=== PATIENT | male | born 1990 | race Caucasian/White ===

== ENCOUNTER 2020-11-05 12:22 | Emergency (ER) | payer BC ==
[2020-11-05] MEDS ORDERED: KETOROLAC 30 MG/ML INJ ONE (13:50)
--- NOTE | 2020-11-05 14:14 | RAD REPORT ---
EXAM DESCRIPTION: RAD - Chest Pa And Lat (2 Views) - 11/05/2020 2:04 pm CLINICAL HISTORY: RIB PAIN - RIGHT Chest pain. COMPARISON: CHEST PA AND LAT 2 VIEW dated 10/16/2008; CHEST PA AND LAT 2 VIEW dated 07/15/2008 FINDINGS: The lungs are clear. The heart is normal in size. Healing right posterior rib fractures in volving ribs number 7 and 8 noted with callus formation present.
--- NOTE | 2020-11-05 14:25 | EDPHYS ---
Physician Documentation [facility] Name: Mehdi Guzman Age: 30 yrs Sex: Male : 1990 Arrival Date: 11/05/2020 Time: 12:25 Bed 24 Private MD: VERO Physician Ed Walton HPI: 11/05 14:01 This 30 yrs old Male presents to ER via Ambulatory with complaints of Back kb Pain. 14:01 The patient presents with pain that is acute, and tenderness. The symptoms are located kb in the right subscapular area. Onset: The symptoms/episode began/occurred 2 month(s) ago. The pain radiates to the right breast. Associated signs and symptoms: The patient has no apparent associated signs or symptoms. The problem was sustained bent over and coughed two months ago and felt a pop, has had pain since then. Modifying factors: The patient symptoms are alleviated by nothing, the patient symptoms are aggravated by coughing. Severity of symptoms: At their worst the symptoms were moderate, in the emergency department the symptoms are unchanged. The patient has not experienced similar symptoms in the past. The patient has been recently seen by a physician:. Pt reports he started having right mid back pain after bending over a coughing 2 months ago. States he felt a pop at the time. Was seen at [place] at time of onset and again 2 weeks ago. Has had CXR and CT with no findings. Has been put on muscle relaxers and pain medication, but is out. Came today because pain has continued. . Historical: - Allergies: 13:08 No Known Allergies; ca1 - Home Meds: 13:08 None [Active]; ca1 - PMHx: 13:08 None; ca1 - PSHx: 13:08 None; ca1 - Immunization history:: Flu vaccine is up to date. - Social history:: Smoking status: Patient reports the use of cigarette tobacco products, smokes two packs cigarettes per day. ROS: 14:01 Constitutional: Negative for fever, chills, and weight loss, Cardiovascular: Negative kb for chest pain, palpitations, and edema, Respiratory: Negative for shortness of breath, cough, wheezing, and pleuritic chest pain, Abdomen/GI: Negative for abdominal pain, nausea, vomiting, diarrhea, and constipation, MS/Extremity: Negative for injury and deformity, Skin: Negative for injury, rash, and discoloration, Neuro: Negative for headache, weakness, numbness, tingling, and seizure. 14:01 Back: Positive for pain at rest, pain with movement, radiated pain, of the right subscapular area. Exam: 14:04 Constitutional: This is a well developed, well nourished patient who is awake, alert, kb and in no acute distress. Head/Face: Normocephalic, atraumatic. Cardiovascular: Regular rate and rhythm with a normal S1 and S2. No gallops, murmurs, or rubs. No pulse deficits. Respiratory: Lungs have equal breath sounds bilaterally, clear to auscultation. No rales, rhonchi or wheezes noted. No increased work of breathing, no retractions or nasal flaring. Skin: Warm, dry with normal turgor. Normal color with no rashes, no lesions, and no evidence of cellulitis. MS/ Extremity: Pulses equal, no cyanosis. Neurovascular intact. Full, normal range of motion. Neuro: Awake and alert, GCS 15, oriented to person, place, time, and situation. Cranial nerves II-XII grossly intact. Moves all extremities. Sensory grossly intact. Cerebellar exam normal. Normal gait. 14:04 Back: pain, that is moderate, of the right subscapular area, ROM is normal, normal spinal alignment noted. Vital Signs: 13:05 BP 117 / 82; Pulse 86; Resp 16 S; Temp 97.9(TE); Pulse Ox 100% on R/A; Weight 102.06 kg ca1 (R); Height 5 ft. 11 in. (180.34 cm) (R); Pain 8/10; 13:05 Body Mass Index 31.38 (102.06 kg, 180.34 cm) ca1 MDM: 13:09 Patient medically screened. kb 14:04 Data reviewed: vital signs, nurses notes. Data interpreted: Pulse oximetry: on room air kb is 100 %. Interpretation: normal. Counseling: I had a detailed discussion with the patient and/or guardian regarding: the historical points, exam findings, and any diagnostic results supporting the discharge/admit diagnosis, radiology results, the need for outpatient follow up, a family practitioner, to return to the emergency department if symptoms worsen or persist or if there are any questions or concerns that arise at home. 11/05 13:09 Order name: Chest Pa And Lat (2 Views) XRAY; Complete Time: 14:16 kb Administered Medications: 13:35 Drug: TORadol 60 mg Route: IM; Site: right deltoid; iw Disposition: 11/05/20 14:24 Discharged to Home. Impression: Multiple fractures of ribs, right side. - Condition is Stable. - Discharge Instructions: Rib Fracture, [id number]. - Prescriptions for Ibuprofen 800 mg Oral Tablet - take 1 tablet by ORAL route every 8 hours As needed take with food; 30 tablet. Tylenol- Codeine #3 300-30 mg Oral Tablet - take 2 tablets by ORAL route every 6 hours As needed; 14 tablet. Cyclobenzaprine 10 mg Oral Tablet - take 1 tablet by ORAL route every 8 hours As needed; 21 tablet. - Medication Reconciliation Form, Thank You Letter, Antibiotic Education, Prescription Opioid Use form. - Follow up: Emergency Department; When: As needed; Reason: Worsening of condition. Follow up: Private Physician; When: 2 - 3 days; Reason: Recheck today's complaints, Continuance of care, Re-evaluation by your physician. Addendum: 11/06/2020 19:46 Co-signature as Attending Physician, Ed Walton MD I agree with the assessment and c harper plan of care. Signatures: Dispatcher [employer] Mayte De Los Santos, ENVIRONMENTAL PROJECTS ADVISOR-C ENVIRONMENTAL PROJECTS ADVISOR-Ed Guthrie MD MD cha Williams, Irene, RN RN Sofia Alves RN RN ca1 Corrections: (The following items were deleted from the chart) 11/05 15:08 14:24 11/05/2020 14:24 Discharged to Home. Impression: Multiple fractures of ribs, iw right side. Condition is Stable. Forms are Medication Reconciliation Form, Thank You Letter, Antibiotic Education, Prescription Opioid Use. Follow up: Emergency Department; When: As needed; Reason: Worsening of condition. Follow up: Private Physician; When: 2 - 3 days; Reason: Recheck today's complaints, Continuance of care, Re-evaluation by your physician. kb
--- NOTE | 2020-11-05 14:25 | ER ---
Nurse's Notes [facility] Name: Mehdi Guzman Age: 30 yrs Sex: Male : 1990 Arrival Date: 11/05/2020 Time: 12:25 Bed 24 Private MD: Diagnosis: Multiple fractures of ribs, right side Presentation: 11/05 13:05 Chief complaint: Patient states: Couple weeks ago, I was coughing. Bend over then the I ca1 feel something popped on the R side of my back, now it has started to hurt on my R ribcage. Coronavirus screen: Client denies travel out of the [place] in the last 14 days. cough unrelated to allergies, Client presents with at least one sign or symptom that may indicate coronavirus-19. Standard/surgical mask placed on the client. Provider contacted for isolation considerations. Ebola Screen: Patient negative for fever greater than or equal to 101.5 degrees Fahrenheit, and additional compatible Ebola Virus Disease symptoms Patient denies exposure to infectious person. Patient denies travel to an Ebola-affected area in the 21 days before illness onset. No symptoms or risks identified at this time. Initial Sepsis Screen: Does the patient meet any 2 criteria? No. Patient's initial sepsis screen is negative. Does the patient have a suspected source of infection? No. Patient's initial sepsis screen is negative. Risk Assessment: Do you want to hurt yourself or someone else? Patient reports no desire to harm self or others. Onset of symptoms was November 05, 2020. 13:05 Method Of Arrival: Ambulatory ca1 13:05 Acuity: AUGUST 4 ca1 Triage Assessment: 14:00 General: Appears in no apparent distress. Behavior is calm, cooperative. iw Musculoskeletal: Range of motion: intact in all extremities. Historical: - Allergies: 13:08 No Known Allergies; ca1 - Home Meds: 13:08 None [Active]; ca1 - PMHx: 13:08 None; ca1 - PSHx: 13:08 None; ca1 - Immunization history:: Flu vaccine is up to date. - Social history:: Smoking status: Patient reports the use of cigarette tobacco products, smokes two packs cigarettes per day. Screenin:07 Abuse screen: Denies threats or abuse. Denies injuries from another. Nutritional iw screening: No deficits noted. Tuberculosis screening: No symptoms or risk factors identified. Fall Risk None identified. Assessment: 14:00 General: Appears in no apparent distress. Behavior is calm, cooperative. Pain: iw Complains of pain in right lateral anterior chest and right lateral posterior chest and right subscapular area. Neuro: Level of Consciousness is awake, alert, obeys commands, Oriented to person, place, time, situation, Moves all extremities. Full function. Cardiovascular: Patient's skin is warm and dry. Respiratory: Respiratory effort is even, unlabored, Respiratory pattern is regular, symmetrical. Derm: Skin is intact, is healthy with good turgor. Musculoskeletal: Range of motion: intact in all extremities. Vital Signs: 13:05 BP 117 / 82; Pulse 86; Resp 16 S; Temp 97.9(TE); Pulse Ox 100% on R/A; Weight 102.06 kg ca1 (R); Height 5 ft. 11 in. (180.34 cm) (R); Pain 8/10; 13:05 Body Mass Index 31.38 (102.06 kg, 180.34 cm) ca1 ED Course: 12:25 Patient arrived in ED. bg2 13:07 Triage completed. ca1 13:08 Mayte Gonzalez FNP-C is PHCP. kb 13:08 Ed Walton MD is Attending Physician. kb 13:08 Arm band placed on right wrist. ca1 13:21 Yasmin Garner, RN is Primary Nurse. iw 14:00 Patient has correct armband on for positive identification. iw 14:01 Chest Pa And Lat (2 Views) XRAY In Process Unspecified. EDMS 15:07 No provider procedures requiring assistance completed. Patient did not have IV access iw during this emergency room visit. Administered Medications: 13:35 Drug: TORadol 60 mg Route: IM; Site: right deltoid; iw Outcome: 14:24 Discharge ordered by MD. kb 15:07 Discharged to home ambulatory. iw 15:07 Condition: good 15:07 Discharge instructions given to patient, Instructed on discharge instructions, follow up and referral plans. medication usage, Demonstrated understanding of instructions, follow-up care, medications, Prescriptions given X 1. 15:08 Patient left the ED. iw Signatures: Dispatcher [employer] EDMS Mayte Gonzalez FNP-C FNP-Yasmin Mccray RN RN Isabela Marques bg2 Sofia Alves RN RN ca1 Corrections: (The following items were deleted from the chart) 13: 13:05 Chief complaint: Patient states: Couple weeks ago, I was coughing. Bend over then ca1 the I feel something popped on the R side of my back, now it has started to hurt on my R ribcage. ca1 : 13:05 Coronavirus screen: Client denies travel out of the [place] in the last 14 days. At ca1 this time, the client does not indicate any symptoms associated with coronavirus-19. ca1 13: 13:05 BP 117 / 82; Pulse 86bpm; Resp 16bpm; Spontaneous; Pulse Ox 100% RA; Temp 97.9F ca1 Temporal; 102.06 kg Reported; Height 5 ft. 11 in. Reported; BMI: 31.3; ca1 13:15 13:05 Acuity: AUGUST 3 ca1 ca1
[2020-11-05 17:09] VITALS: BP 117/82; TEMP 97.9; O2SAT 100
== END 2020-11-05 15:08 | disposition home or self-care (01) ==
LOC: ER 12:22
DX: S22.41XA Multiple fractures of ribs, right side, initial encounter for closed fracture (principal); F17.210 Nicotine dependence, cigarettes, uncomplicated
CPT/HCPCS: 71046; 96372; 99283

== ENCOUNTER 2021-05-30 09:47 | Emergency (ER) | payer BC ==
[2021-05-30 10:43] LABS: Absolute Lymphocytes (CBC) 2.2 K/uL (0.7-4.9); Basophils % 0.9 % (0-1.3); Hematocrit 44.4 % (39.6-49.0); Lymphocytes % 24.9 % (15.3-44.8); MPV 8.2 fL (7.6-11.3); RBC Red Blood Cell Count 4.93 M/uL (4.33-5.43)
[2021-05-30 10:45] LABS: Protime INR 0.99
[2021-05-30] MEDS ORDERED: NA CHLORIDE 0.9% 1,000 ML ONE (10:48)
--- NOTE | 2021-05-30 10:59 | RAD REPORT ---
EXAM DESCRIPTION: RAD - Chest Single View - 05/30/2021 10:52 am CLINICAL HISTORY: SOB COMPARISON: Chest Pa And Lat (2 Views) dated 11/05/2020; CHEST PA AND LAT 2 VIEW dated 10/16/2008; CHES T PA AND LAT 2 VIEW dated 07/15/2008 FINDINGS: Lines: None. Lungs: Decreased lung volumes. No definite acute process identified. Pleural: No significant pleural effusions or pneumothorax. Cardiac: The heart size is within normal limits. Bones: Remote right-sided rib fractures. Other: IMPRESSION: New airspace opacities at the right lung base
[2021-05-30 11:07] LABS: ALT/SGPT 58 U/L (12-78); AST/SGOT 26 U/L (15-37); Albumin 3.7 g/dL (3.4-5.0); Alkaline Phosphatase 104 U/L (45-117); BUN Blood Urea Nitrogen 14 mg/dL (7-18); Bicarbonate 24 mmol/L (21-32); Bilirubin Direct 0.1 mg/dL (0-0.2); Bilirubin Total 0.6 mg/dL (0.2-1.0); Glucose Level 117 mg/dL (74-106); Magnesium 1.9 mg/dL (1.8-2.4); Potassium 3.9 mmol/L (3.5-5.1); Protein, Total 7.1 g/dL (6.4-8.2); Sodium Level 140 mmol/L (136-145); Troponin (Emerg Dept Use Only) < 0.02 ng/mL (0.0-0.045)
[2021-05-30 11:29] LABS: NT PRO-BNP < 5 pg/mL (<125)
--- NOTE | 2021-05-30 13:08 | EDPHYS ---
Physician Documentation [facility] Name: Mehdi Guzman Age: 31 yrs Sex: Male : 1990 Arrival Date: 05/30/2021 Time: 09:50 Bed 25 Private MD: Pierre Killian T ED Physician Jesus Harrison HPI: 05/30 10:19 This 31 yrs old Male presents to ER via Ambulatory with complaints of kdr Shortness Of Breath. 10:19 The patient has shortness of breath at rest, with light activity. Onset: The kdr symptoms/episode began/occurred gradually, 2 day(s) ago. Duration: The symptoms are continuous, and are steadily getting worse. Associated signs and symptoms: Pertinent positives: This patient does not have any pertinent positive signs or symptoms associated with shortness of breath. Pertinent negatives: chest pain, non-productive cough, productive cough, diaphoresis, dizziness, fever, hemoptysis, loss of consciousness, nausea, numbness in extremities, visual changes, vomiting. Severity of symptoms: At their worst the symptoms were mild moderate just prior to arrival, in the emergency department the symptoms are unchanged. The patient has not experienced similar symptoms in the past. The patient has not recently seen a physician. Historical: - Allergies: 09:58 PENICILLINS; tw2 09:58 Sulfa (Sulfonamide Antibiotics); tw2 - Home Meds: 09:58 Klonopin Oral [Active]; tw2 - PMHx: 09:58 Bipolar disorder; add; Major depressive disorder; Anxiety; tw2 - Immunization history:: Client reports having NOT received the Covid vaccine. - Social history:: Smoking status: Reported history of juuling and/or vaping. - Family history:: not pertinent. - Code Status:: Full code. ROS: 10:19 Constitutional: Negative for fever, chills, and weight loss, Eyes: Negative for injury, kdr pain, redness, and discharge, ENT: Negative for injury, pain, and discharge, Neck: Negative for injury, pain, and swelling, Cardiovascular: Negative for chest pain, palpitations, and edema, Abdomen/GI: Negative for abdominal pain, nausea, vomiting, diarrhea, and constipation, Back: Negative for injury and pain, : Negative for injury, bleeding, discharge, and swelling, MS/Extremity: Negative for injury and deformity, Skin: Negative for injury, rash, and discoloration, Neuro: Negative for headache, weakness, numbness, tingling, and seizure activity. Psych: Negative for depression, anxiety, suicide ideation, homicidal ideation, and hallucinations, Allergy/Immunology: Negative for hives, rash, and allergies, Endocrine: Negative for neck swelling, polydipsia, polyuria, polyphagia, and marked weight changes, Hematologic/Lymphatic: Negative for swollen nodes, abnormal bleeding, and unusual bruising. Exam: 10:19 Constitutional: This is a well developed, well nourished patient who is awake, alert, kdr and in no acute distress. Head/Face: Normocephalic, atraumatic. Eyes: Pupils equal round and reactive to light, extra-ocular motions intact. Lids and lashes normal. Conjunctiva and sclera are non-icteric and not injected. Cornea within normal limits. Periorbital areas with no swelling, redness, or edema. Neck: Trachea midline, no thyromegaly or masses palpated, and no cervical lymphadenopathy. Supple, full range of motion without nuchal rigidity, or vertebral point tenderness. No Meningismus. Chest/axilla: Normal chest wall appearance and motion. Nontender with no deformity. No lesions are appreciated. Respiratory: Lungs have equal breath sounds bilaterally, clear to auscultation and percussion. No rales, rhonchi or wheezes noted. No increased work of breathing, no retractions or nasal flaring. Abdomen/GI: Soft, non-tender, with normal bowel sounds. No distension or tympany. No guarding or rebound. No evidence of tenderness throughout. Back: No spinal tenderness. No costovertebral tenderness. Full range of motion. Skin: Warm, dry with normal turgor. Normal color with no rashes, no lesions, and no evidence of cellulitis. MS/ Extremity: Pulses equal, no cyanosis. Neurovascular intact. Full, normal range of motion. Neuro: Awake and alert, GCS 15, oriented to person, place, time, and situation. Cranial nerves II-XII grossly intact. Motor strength 5/5 in all extremities. Sensory grossly intact. Cerebellar exam normal. Normal gait. Psych: Awake, alert, with orientation to person, place and time. Behavior, mood, and affect are within normal limits. 10:19 Cardiovascular: Rate: tachycardic, Rhythm: regular, Pulses: no pulse deficits are appreciated. Vital Signs: 09:56 BP 136 / 89; Pulse 106; Resp 17; Temp 96.6(TE); Pulse Ox 97% on R/A; Weight 118.39 kg tw2 (R); Height 5 ft. 11 in. (180.34 cm); 10:10 BP 137 / 85; Pulse 108; Resp 18; Temp 98.1(TE); Pulse Ox 97% on R/A; kh1 13:17 BP 107 / 86; Pulse 97; Resp 17; Pulse Ox 97% on R/A; oh 09:56 Body Mass Index 36.40 (118.39 kg, 180.34 cm) tw2 MDM: 10:19 Data reviewed: vital signs, lab test result(s), EKG, radiologic studies. Counseling: I kdr had a detailed discussion with the patient and/or guardian regarding: the historical points, exam findings, and any diagnostic results supporting the discharge/admit diagnosis, lab results, radiology results. 13:08 Patient medically screened. [facility] 13:08 ED course: Patient was stable in the emergency department. He had no symptoms while in [facility] the ED. The patient and his were present as I discussed all results. They were happy with the care provided and the plan for discharge and follow-up.. 05/30 10:16 Order name: Basic Metabolic Panel [facility] 05/30 10:16 Order name: CBC with Diff; Complete Time: 12:51 [facility] 05/30 10:16 Order name: LFT's; Complete Time: 12:51 [facility] 05/30 10:16 Order name: Magnesium; Complete Time: 12:51 [facility] 05/30 10:16 Order name: NT PRO-BNP; Complete Time: 12:51 [facility] 05/30 10:16 Order name: PT-INR; Complete Time: 12:51 [facility] 05/30 10:16 Order name: Troponin (emerg Dept Use Only); Complete Time: 12:51 [facility] 05/30 10:16 Order name: XRAY Chest (1 view); Complete Time: 12:51 [facility] 05/30 10:16 Order name: EKG; Complete Time: 10:17 [facility] 05/30 10:16 Order name: D-Dimer; Complete Time: 12:51 [facility] 05/30 10:17 Order name: Basic Metabolic Panel; Complete Time: 12:51 [facility] 05/30 12:06 Order name: SARS-COV-2 RT PCR; Complete Time: 12:51 [facility] 05/30 10:16 Order name: Cardiac monitoring; Complete Time: : [facility] 05/30 10:16 Order name: EKG - Nurse/Tech; Complete Time: 10: [facility] 05/30 10:16 Order name: IV Saline Lock; Complete Time: : [facility] 05/30 10:16 Order name: Labs collected and sent; Complete Time: : [facility] 05/30 10:16 Order name: O2 Per Protocol; Complete Time: : kdr 05/30 10:16 Order name: O2 Sat Monitoring; Complete Time: : kdr Administered Medications: 10:20 Drug: NS 0.9% 1000 ml Route: IV; Rate: 1 bolus; Site: left antecubital; oh Disposition Summary: 05/30/21 13:08 Discharge Ordered Location: Home kdr Problem: new kdr Symptoms: have improved kdr Condition: Stable kdr Diagnosis - Dyspnea kdr - Dyspnea, unspecified kdr Followup: kdr - With: Pierre Killian MD - When: 2 - 3 days - Reason: If symptoms return, Further diagnostic work-up, Recheck today's complaints, Continuance of care, Re-evaluation by your physician Discharge Instructions: - Shortness of Breath, Adult, [id number] kdr - Discharge Summary Sheet tw2 Forms: - Work release form tw2 - Family Work Release tw2 - Medication Reconciliation Form kdr - Thank You Letter kdr Signatures: Dispatcher [employer] EDMS Jesus Harrison MD MD kdr Dori Stephens RN RN 2 Katya Moore [facility] Lalit Dunbar RN RN oh Corrections: (The following items were deleted from the chart) 11:10 10:17 CORONAVIRUS+BRZ ordered. [facility]CO
--- NOTE | 2021-05-30 13:08 | ER ---
Nurse's Notes [facility] Name: Mehdi Guzman Age: 31 yrs Sex: Male : 1990 Arrival Date: 05/30/2021 Time: 09:50 Bed 25 Private MD: Pierre Killian T Diagnosis: Dyspnea;Dyspnea, unspecified Presentation: 05/30 09:56 Chief complaint: Patient states: i keep waking up like i cant breathe. just sitting tw2 around the house i feel so short of breath. it started 2 days ago. it is getting worse. Coronavirus screen: cough unrelated to allergies, difficulty breathing, fatigue, muscle pain, Client presents with at least one sign or symptom that may indicate coronavirus-19. Standard/surgical mask placed on the client. Provider contacted for isolation considerations. Ebola Screen: Patient denies travel to an Ebola-affected area in the 21 days before illness onset. Initial Sepsis Screen: Does the patient meet any 2 criteria? HR > 90 bpm. Does the patient have a suspected source of infection? No. Patient's initial sepsis screen is negative. Risk Assessment: Do you want to hurt yourself or someone else? Patient reports no desire to harm self or others. Onset of symptoms was May 30, 2021. 09:56 Method Of Arrival: Ambulatory tw2 09:56 Acuity: AUGUST 3 tw2 Triage Assessment: 09:58 General: Appears in no apparent distress. obese, Behavior is calm, cooperative, tw2 appropriate for age. Pain: Denies pain. Respiratory: Reports shortness of breath at rest on exertion cough that is productive, non-productive, Onset: The symptoms/episode began/occurred couple of days, the patient has mild shortness of breath. Historical: - Allergies: 09:58 PENICILLINS; tw2 09:58 Sulfa (Sulfonamide Antibiotics); tw2 - Home Meds: 09:58 Klonopin Oral [Active]; tw2 - PMHx: 09:58 Bipolar disorder; add; Major depressive disorder; Anxiety; tw2 - Immunization history:: Client reports having NOT received the Covid vaccine. - Social history:: Smoking status: Reported history of juuling and/or vaping. - Family history:: not pertinent. - Code Status:: Full code. Screenin:04 Abuse screen: Denies threats or abuse. Nutritional screening: No deficits noted. tw2 Tuberculosis screening: No symptoms or risk factors identified. Fall Risk None identified. Assessment: 10:10 General: Appears in no apparent distress. comfortable, Behavior is calm, cooperative, kh1 appropriate for age. Pain: Denies pain. Neuro: Level of Consciousness is awake, alert, obeys commands, Oriented to person, place, time, situation, City Councilman are equal bilaterally Moves all extremities. Full function Gait is steady, Speech is normal, Facial symmetry appears normal. Cardiovascular: Rhythm is sinus rhythm. Respiratory: Airway is patent Respiratory effort is even, unlabored, Respiratory pattern is regular. 13:16 Respiratory: oh Vital Signs: 09:56 BP 136 / 89; Pulse 106; Resp 17; Temp 96.6(TE); Pulse Ox 97% on R/A; Weight 118.39 kg tw2 (R); Height 5 ft. 11 in. (180.34 cm); 10:10 BP 137 / 85; Pulse 108; Resp 18; Temp 98.1(TE); Pulse Ox 97% on R/A; kh1 13:17 BP 107 / 86; Pulse 97; Resp 17; Pulse Ox 97% on R/A; oh 09:56 Body Mass Index 36.40 (118.39 kg, 180.34 cm) tw2 ED Course: 09:50 Patient arrived in ED. mr 09:50 Pierre Killian MD is Private Physician. mr 09:55 Jesus Harrison MD is Attending Physician. kdr 09:58 Triage completed. tw2 09:58 Arm band placed on. tw2 10:00 Bed in low position. Call light in reach. Adult w/ patient. tw2 10:09 Lalit Dunbar, RN is Primary Nurse. oh 10:21 Initial lab(s) drawn, by me, sent to lab. Inserted saline lock: 20 gauge in left vg1 antecubital area, using aseptic technique. Blood collected. 10:47 Basic Metabolic Panel Sent. oh 10:52 XRAY Chest (1 view) In Process Unspecified. EDMS 13:07 Pierre Killian MD is Referral Physician. kdr 13:16 No provider procedures requiring assistance completed. oh 13:17 IV discontinued, bleeding controlled, Pressure dressing applied. oh Administered Medications: 10:20 Drug: NS 0.9% 1000 ml Route: IV; Rate: 1 bolus; Site: left antecubital; oh Outcome: 13:08 Discharge ordered by . sosa 13:17 Discharged to home ambulatory. oh 13:17 Condition: stable 13:17 Discharge instructions given to patient. 13:18 Patient left the ED. oh Signatures: Dispatcher [employer] EDJesus Shanks MD MD kdr Rivera, Mary mr Dori Stephens, RN RN tw2 Claudia Garcia RN RN 1 [facility] Lalit Dunbar, RN RN oh
[2021-05-30 13:23] VITALS: O2SAT 97
[2021-05-30 13:25] VITALS: TEMP 98.1
[2021-05-30 13:26] VITALS: BP 107/86
--- NOTE | 2021-05-31 15:59 | EKG ---
Test Date: 2021-05-30 Test Time: 10:27:07 Art Objects Repairer: ONESIMO MEASUREMENT RESULTS: Intervals: Rate: 98 NC: 128 QRSD: 86 QT: 344 QTc: 439 [place]: P: 29 NC: 128 QRS: 60 T: 50 INTERPRETIVE STATEMENTS: Normal sinus rhythm Normal ECG Compared to ECG 07/15/2008 13:20:07 Sinus arrhythmia no longer present Electronically Signed On 05-31-21 15:56:37 CDT by Lenny Hurtado
== END 2021-05-30 13:18 | disposition home or self-care (01) ==
LOC: ER 09:47
DX: R06.00 Dyspnea, unspecified (principal); Z20.822 Contact with and (suspected) exposure to COVID-19; F32.9 Major depressive disorder, single episode, unspecified; Z88.0 Allergy status to penicillin; Z88.2 Allergy status to sulfonamides
CPT/HCPCS: 93005; 85025; 80048; 36415; 83735; 85610; 85379; 80076; 84484; 83880; 71045; 99284; U0003; J7030

== ENCOUNTER 2021-12-27 20:58 | Emergency (ER) | payer BC ==
--- OUTSIDE RECORDS SUMMARY | 2021-12-27 21:01 | XMS REPORT | Continuity of Care Document ---
:1990 Author Organization [facility] Address [address] [place] [address] Dr. Garcia [address] [place] [id number] Care Team Providers Name Role Phone Unavailable Unavailable Unavailable Payers Payer Name Policy Type Policy Number Effective Date Expiration Date S lida [employer]UE [employer] BLUE BL [id number] [facility] Problems This patient has no known problems. Allergies, Adverse Reactions, Alerts This patient has no known allergies or adverse reactions. Medications This patient has no known medications. Procedures This patient has no known procedures. Encounters Start End Encounter Admission Attending Care Care Encounter Source Date/Time Date/Time Type Type Clinicians Facility Department ID 2021-11-30 Outpatient [facility] [id number] [place] 14:57:23 [id number] - [place]AR[place] 2021-11-28 Outpatient [facility] [id number] [place] 13:25:20 [id number] - [place] Results This patient has no known results.
[2021-12-27] MEDS ORDERED: NA CHLORIDE 0.9% 1,000 ML ONE (21:20)
[2021-12-27 21:32] LABS: Urine Blood Negative (Negative); Urine Glucose Negative (Negative); Urine Protein Negative (Negative); Urine Specific Gravity >=1.030 (1.005-1.030)
[2021-12-27 21:38] LABS: Absolute Lymphocytes (CBC) 4.7 K/uL (0.7-4.9); Hematocrit 46.6 % (39.6-49.0); Lymphocytes % 30.8 % (15.3-44.8); RBC Red Blood Cell Count 5.22 M/uL (4.33-5.43)
[2021-12-27 21:42] LABS: Protime INR 1.07
[2021-12-27 21:50] LABS: Barbiturates NEGATIVE (NEGATIVE); Benzodiazepines NEGATIVE (NEGATIVE); Cocaine NEGATIVE (NEGATIVE); METHAMPHETAM NEGATIVE (NEGATIVE); Methadone NEGATIVE (NEGATIVE); Opiates NEGATIVE (NEGATIVE); Phencyclidine NEGATIVE (NEGATIVE); THC Cannibis POSITIVE (NEGATIVE)
[2021-12-27 21:59] LABS: ALT/SGPT 72 U/L (12-78); AST/SGOT 24 U/L (15-37); Albumin 3.9 g/dL (3.4-5.0); Alkaline Phosphatase 103 U/L (45-117); BUN Blood Urea Nitrogen 12 mg/dL (7-18); Bicarbonate 28 mmol/L (21-32); Bilirubin Direct < 0.1 mg/dL (0-0.2); Bilirubin Total 0.5 mg/dL (0.2-1.0); Glucose Level 139 mg/dL (74-106); Potassium 3.5 mmol/L (3.5-5.1); Protein, Total 7.4 g/dL (6.4-8.2); Sodium Level 137 mmol/L (136-145)
--- NOTE | 2021-12-27 22:04 | RAD REPORT ---
EXAM DESCRIPTION: CT - Head Brain Wo Cont - 12/27/2021 9:54 pm CLINICAL HISTORY: Mental status change, unknown cause Headache, drowsiness COMPARISON: HEAD BRAIN W O CONTRAST dated 10/16/2008 TECHNIQUE: All CT scans are performed using dose optimization technique as appropriate and may inclu de automated exposure control or mA/KV adjustment according to patient size. FINDINGS: No intracranial hemorrhage, hydrocephalus or extra-axial fluid collection.No areas of brai n edema or evidence of midline shift. 14 mm mucous retention cyst or polyp is present in the left maxillary antrum. The paranasal sinuses a nd mastoids are otherwise clear. The calvarium is intact. IMPRESSION: No acute intracranial abnormality.
--- NOTE | 2021-12-27 22:16 | RAD REPORT ---
EXAM DESCRIPTION: RAD - Chest Single View - 12/27/2021 10:11 pm CLINICAL HISTORY: R/O aspiration Chest pain. COMPARISON: <Comparisons> FINDINGS: Portable technique limits examination quality. Mild to moderate bilateral pulmonary opacities probably represents pulmonary edema. The heart is norm al in size. No displaced fractures. IMPRESSION: Mild to moderate pulmonary edema.
[2021-12-28 00:06] LABS: NT PRO-BNP < 5 pg/mL (<125); Troponin High Sensitivity < 3.0 pg/mL (<58.9)
--- NOTE | 2021-12-28 03:53 | ER ---
Nurse's Notes [facility] Name: Mehdi Guzman Age: 31 yrs Sex: Male : 1990 Arrival Date: 12/27/2021 Time: 21:03 Bed 3 Private MD: Diagnosis: Cannabis abuse Presentation: 12/27 21:03 Chief complaint: Spouse and/or significant other states: States smoked ll3 something before coming home, pt noted to be pale and diaphoretic, not able to ambulate, O2 87 on room air, said last time he did this he was manic, states he was fine until he got out of the shower. Coronavirus screen: At this time, the client does not indicate any symptoms associated with coronavirus-19. Ebola Screen: No symptoms or risks identified at this time. Initial Sepsis Screen: Does the patient meet any 2 criteria? No. Patient's initial sepsis screen is negative. Does the patient have a suspected source of infection? No. Patient's initial sepsis screen is negative. Risk Assessment: Do you want to hurt yourself or someone else? Unable to obtain. Onset of symptoms is unknown. Activity prior to arrival: loss of consciousness. 21:03 Method Of Arrival: Wheelchair ll3 21:03 Acuity: AUGUST 2 ll3 Triage Assessment: 21:11 General: Appears distressed, Behavior is drowsy, listless, unresponsive. Neuro: Level ll3 of Consciousness is lethargic, Oriented to Appropriate for age. Respiratory: Respiratory effort is asymmetrical, Respiratory pattern is tachypnea. Derm: Skin is clammy. 23:01 Pain: Unable to use pain scale. sleepy. ke1 Historical: - Allergies: 21:11 PENICILLINS; ll3 21:11 Sulfa (Sulfonamide Antibiotics); ll3 - Home Meds: 22:05 Klonopin 1 mg oral tab 2 times per day [Active]; risperidone 1 mg oral tab 1 tab once vc1 daily [Active]; eszopiclone 3 mg oral tab 1 tab once daily [Active]; doxepin 50 mg Oral cap 1 cap once daily [Active]; venlafaxine 100 mg oral tab 1 tab daily [Active]; - PMHx: 21:11 ADD; Anxiety; Bipolar disorder; Major Depressive Disorder; ll3 - Immunization history:: Adult Immunizations up to date. - Social history:: Smoking status: Reported history of juuling and/or vaping. Screenin:59 Abuse screen:. Nutritional screening: No deficits noted. Tuberculosis screening: No ke1 symptoms or risk factors identified. Fall Risk No fall in past 12 months (0 pts). IV access (20 points). Ambulatory Aid- None/Bed Rest/Nurse Assist (0 pts). Gait- Normal/Bed Rest/Wheelchair (0 pts) Mental Status- Overestimates/Forgets Limitations (15 pts.). Total Thompson Fall Scale indicates Low Risk Score (25-44 pts). Fall prevention measures have been instituted. Placed close to Nursing Station Family Present and informed to notify staff if they need to leave bedside. Assessment: 22:57 Reassessment: Patient appears in no apparent distress at this time. Patient states ke1 symptoms have improved. Respiratory: Airway is patent Trachea midline Respiratory effort is even, unlabored, Respiratory pattern is regular, symmetrical, Breath sounds are clear bilaterally. 23:42 Reassessment: Patient states feeling better. Patient states symptoms have improved. ke1 AAOx4 talking with . 12/28 01:40 Reassessment: Patient states feeling better. Patient states symptoms have improved. ke1 03:00 Reassessment: Patient and/or family updated on plan of care and expected duration. Pain vc1 level reassessed. Patient is alert, oriented x 3, equal unlabored respirations, skin warm/dry/pink. Patient states feeling better. Patient states symptoms have improved. Patient sitting up in bed drinking water.. Vital Signs: 12/27 21:03 BP 139 / 106; Pulse 104; Resp 22; Pulse Ox 87% on R/A; Weight 136.08 kg; ll3 21:30 BP 144 / 82; Pulse 101; Resp 24; Pulse Ox 94% on 4 lpm NC; vc1 22:58 BP 152 / 77; Pulse 105; Resp 18; Pulse Ox 97% on 4 lpm NC; ke1 23:30 BP 139 / 84; Pulse 97; Resp 18; Pulse Ox 98% on 4 lpm NC; vc1 12/28 00:30 BP 136 / 75; Pulse 106; Resp 18; Pulse Ox 97% on 4 lpm NC; vc1 01:40 BP 116 / 80; Pulse 98; Resp 18; Pulse Ox 100% on 1 lpm NC; ke1 02:30 BP 112 / 74; Pulse 98; Resp 18; Pulse Ox 93% on R/A; vc1 03:30 BP 116 / 76; Pulse 95; Resp 20; Pulse Ox 95% on R/A; vc1 ED Course: 12/27 21:03 Patient arrived in ED. ll3 21:04 Shamir Hobbs PA is PHCP. jr8 21:05 Enrique Vasques MD is Attending Physician. jr8 21:11 Triage completed. ll3 21:11 Arm band placed on left wrist. ll3 21:14 Marni Cooper, RN is Primary Nurse. ke1 21:18 Inserted saline lock: 18 gauge in right in left antecubital area, using aseptic ke1 technique. 21:18 Inserted saline lock: 18 gauge in left antecubital area, using aseptic technique. tw5 21:56 Head Brain Wo Cont CT In Process Unspecified. EDMS 22:13 Chest Single View XRAY In Process Unspecified. EDMS 23:00 Bed in low position. Adult w/ patient. ke1 12/28 04:04 No provider procedures requiring assistance completed. IV discontinued, intact, vc1 bleeding controlled, No redness/swelling at site. Pressure dressing applied. IV discontinued, intact, bleeding controlled, No redness/swelling at site. Pressure dressing applied. Administered Medications: 12/27 21:18 Drug: NS 0.9% 1000 ml Route: IV; Rate: 1 bolus; Site: left antecubital; ke1 23:00 Follow up: IV Status: Completed infusion; IV Intake: 1000ml vc1 Intake: 23:00 IV: 1000ml; Total: 1000ml. vc1 Outcome: 12/28 03:53 Discharge ordered by . [facility] 04:05 Discharged to home ambulatory, with significant other. vc1 04:05 Condition: improved 04:05 Discharge instructions given to patient, significant other, Instructed on discharge instructions, follow up and referral plans. Demonstrated understanding of instructions, follow-up care. 04:05 Patient left the ED. vc1 Signatures: Dispatcher [employer] EDMS Shamir Hobbs PA PA jr8 Enrique Vasques MD MD [facility] Olimpia Bowen tw5 Matt Andino RN RN 3 Leonor Beal RN RN vc1 Marni Cooper RN RN ke1 Corrections: (The following items were deleted from the chart) 12/27 22:07 21:11 Home Meds: Klonopin Oral; ll3 vc1
--- NOTE | 2021-12-28 03:54 | EDPHYS ---
Physician Documentation [facility] Name: Mehdi Guzman Age: 31 yrs Sex: Male : 1990 Arrival Date: 12/27/2021 Time: 21:03 Bed 3 Private MD: ED Physician Enrique Vasques HPI: 12/27 23:40 This 31 yrs old Male presents to ER via Wheelchair with complaints of Possible jr8 overdose/AMS. 23:40 The patient presents to the emergency department with a possible overdose. Associated jr8 signs and symptoms: Pertinent positives: decreased level of consciousness. Severity of symptoms: At their worst the symptoms were moderate in the emergency department the symptoms are unchanged. The patient has not experienced similar symptoms in the past. The patient has not recently seen a physician. Son arrived via EMS after being called out by family or unresponsive patient. Family stated that he smelled of marijuana tonight which they know he is a frequent user of. Stated that he also will smoke "wax". Stated that he had just gotten out of the shower and while going to the bedroom called for their help. Patient's family stated that he was hugging the wall and looked pale and altered. Upon arrival to EMS patient was somnolent but arousable.. Historical: - Allergies: 21:11 PENICILLINS; ll3 21:11 Sulfa (Sulfonamide Antibiotics); ll3 - Home Meds: 22:05 Klonopin 1 mg oral tab 2 times per day [Active]; risperidone 1 mg oral tab 1 tab once vc1 daily [Active]; eszopiclone 3 mg oral tab 1 tab once daily [Active]; doxepin 50 mg Oral cap 1 cap once daily [Active]; venlafaxine 100 mg oral tab 1 tab daily [Active]; - PMHx: 21:11 ADD; Anxiety; Bipolar disorder; Major Depressive Disorder; ll3 - Immunization history:: Adult Immunizations up to date. - Social history:: Smoking status: Reported history of juuling and/or vaping. ROS: 23:40 Unable to obtain ROS due to altered mental status, patient's inability to understand jr8 questions. Exam: 23:40 Neck: Trachea midline. Supple Cardiovascular: Tachycardic with a normal S1 and S2. jr8 No gallops, murmurs, or rubs. Normal PMI, no JVD. No pulse deficits. Respiratory: Lungs have equal breath sounds bilaterally, clear to auscultation and percussion. No rales, rhonchi or wheezes noted. No increased work of breathing, no retractions or nasal flaring. Abdomen/GI: Soft, non-tender, with normal bowel sounds. No distension or tympany Skin: Warm, dry with normal turgor. Normal color with no rashes, no lesions, and no evidence of cellulitis. MS/ Extremity: Pulses equal, no cyanosis. Neurovascular intact. Full, normal range of motion. 23:40 Eyes: Periorbital structures: appear normal, Pupils: right pupil is approximately 5 mm(s), left pupil is approximately 5 mm(s), sluggish to light, Extraocular movements: intact throughout, Conjunctiva: normal, Corneas: are normal, Sclera: no appreciated abnormality, Lids and lashes: appear normal. 23:40 ENT: Mouth: Lips: moist, Oral mucosa: pink and intact, Posterior pharynx: Airway: patent, Uvula: midline, swelling, is not appreciated. 23:40 Neck: 23:40 Neuro: Orientation: to person, Mentation: slow to respond, Memory: unable to test, Cerebellar function: unable to test, Motor: moves all fours, Sensation: no obvious gross deficits, seizure activity, is not displayed by the patient, Abnormal movements: there are no abnormal movements. Vital Signs: 21:03 BP 139 / 106; Pulse 104; Resp 22; Pulse Ox 87% on R/A; Weight 136.08 kg; ll3 21:30 BP 144 / 82; Pulse 101; Resp 24; Pulse Ox 94% on 4 lpm NC; vc1 22:58 BP 152 / 77; Pulse 105; Resp 18; Pulse Ox 97% on 4 lpm NC; ke1 23:30 BP 139 / 84; Pulse 97; Resp 18; Pulse Ox 98% on 4 lpm NC; vc1 12/28 00:30 BP 136 / 75; Pulse 106; Resp 18; Pulse Ox 97% on 4 lpm NC; vc1 01:40 BP 116 / 80; Pulse 98; Resp 18; Pulse Ox 100% on 1 lpm NC; ke1 02:30 BP 112 / 74; Pulse 98; Resp 18; Pulse Ox 93% on R/A; vc1 03:30 BP 116 / 76; Pulse 95; Resp 20; Pulse Ox 95% on R/A; vc1 MDM: 12/27 21:08 Patient medically screened. 12/28 00:20 Data reviewed: vital signs, nurses notes, lab test result(s), EKG, radiologic studies, CT scan, plain films. Data interpreted: Pulse oximetry: on 4L(s) per nasal canula, is 97 %. Interpretation: normal. Counseling: I had a detailed discussion with the patient and/or guardian regarding: the historical points, exam findings, and any diagnostic results supporting the discharge/admit diagnosis, lab results, radiology results. Transition of care: After a detail discussion of the patient's case, care is transferred to Enrique Vasques MD. 12/27 21:06 Order name: Acetaminophen; Complete Time: 22:09 12/27 21:06 Order name: Basic Metabolic Panel; Complete Time: 22:09 [facility] 12/27 21:06 Order name: CBC with Diff; Complete Time: 21:47 12/27 21:06 Order name: ETOH Level; Complete Time: 21:53 12/27 21:06 Order name: Hepatic Function; Complete Time: 22:09 12/27 21:06 Order name: PT-INR; Complete Time: 21:45 12/27 21:06 Order name: Ptt, Activated; Complete Time: 21:45 12/27 21:06 Order name: Salicylate; Complete Time: 22:20 12/27 21:06 Order name: Urine Drug Screen; Complete Time: 21:53 12/27 21:21 Order name: Glucose, Ancillary Testing; Complete Time: 21:36 EDMS 12/27 21:32 Order name: Urine Dipstick-Ancillary; Complete Time: 21:36 EDMS 12/27 22:20 Order name: BNP; Complete Time: 00:07 12/27 22:20 Order name: Troponin High Sensitivity; Complete Time: 00:07 12/27 21:06 Order name: EKG; Complete Time: 21:07 12/27 21:06 Order name: EKG - Nurse/Tech; Complete Time: 21:59 12/27 21:06 Order name: IV Saline Lock; Complete Time: 21:31 04/28 21:06 Order name: Labs collected and sent; Complete Time: :12/27 21:06 Order name: Suicide Screening ([place]); Complete Time: 12/27 21:06 Order name: Urine Dipstick-Ancillary (obtain specimen); Complete Time: :12/27 21:06 Order name: Chest Single View XRAY; Complete Time: 22:20 12/27 21:08 Order name: Head Brain Wo Cont CT; Complete Time: 22:09 Administered Medications: 12/27 21:18 Drug: NS 0.9% 1000 ml Route: IV; Rate: 1 bolus; Site: left antecubital; ke1 23:00 Follow up: IV Status: Completed infusion; IV Intake: 1000ml vc1 Disposition: 12/28 03:52 Co-signature as Attending Physician, Enrique Vasques MD. [facility] Disposition Summary: 12/28/21 03:53 Discharge Ordered Location: Home [facility] Problem: new [facility] Symptoms: have improved [facility] Condition: Stable [facility] Diagnosis - Cannabis abuse [facility] Followup: [facility] - With: Private Physician - When: 1 - 2 days - Reason: Worsening of condition, Recheck today's complaints, Continuance of care, Re-evaluation by your physician Discharge Instructions: - Discharge Summary Sheet [facility] - Cannabis Use Disorder [facility] Forms: - Medication Reconciliation Form [facility] - Thank You Letter [facility] - Antibiotic Education [facility] - Prescription Opioid Use [facility] Signatures: Dispatcher [employer] EDShamir Armstrong PA PA [facility] Enrique Vasques MD MD [facility] Matt Andino RN RN ll3 Leonor Beal RN RN vc1 Marni Cooper RN RN ke1 Corrections: (The following items were deleted from the chart) 12/27 22:07 21:11 Home Meds: Klonopin Oral; ll3 vc1
[2021-12-28 04:52] VITALS: BP 116/76; O2SAT 95
--- NOTE | 2021-12-28 07:43 | EKG ---
Test Date: 2021-12-27 Test Time: 21:46:07 Food Service Worker: KENNETH MEASUREMENT RESULTS: Intervals: Rate: 103 MN: 134 QRSD: 90 QT: 344 QTc: 450 [place]: P: 13 MN: 134 QRS: 53 T: 24 INTERPRETIVE STATEMENTS: Sinus tachycardia Otherwise normal ECG Compared to ECG 12/27/2021 21:44:05 No significant changes Electronically Signed On 12-28-21 07:42:10 CDT by Lenny Hurtado
--- NOTE | 2021-12-28 07:43 | EKG ---
Test Date: 2021-12-27 Test Time: 21:44:05 Day Care Provider: KENNETH MEASUREMENT RESULTS: Intervals: Rate: 0 NV: QRSD: 0 QT: 0 QTc: 0 [place]: P: NV: QRS: 0 T: 0 INTERPRETIVE STATEMENTS: No QRS complexes found, no ECG analysis possible Compared to ECG 05/30/2021 10:27:07 Sinus rhythm no longer present Electronically Signed On 12-28-21 07:42:11 CDT by Lenny Hurtado
== END 2021-12-28 04:05 | disposition home or self-care (01) ==
LOC: ER 20:58
DX: F12.10 Cannabis abuse, uncomplicated (principal); F31.9 Bipolar disorder, unspecified; Z88.0 Allergy status to penicillin; Z88.2 Allergy status to sulfonamides
CPT/HCPCS: 96361; 93005 ×2; 85025; 80048; 36415; 80320; 80329 ×2; 85610; 82947; 80076; 85730; 81003; 84484; 83880; 80307; 70450; 71045; 96360; 99284; J7030